=== PATIENT | female | born 1995 | race Caucasian/White ===

== ENCOUNTER 2021-01-19 16:51 | Emergency (ER) | payer OTHER, BC ==
[2021-01-19] MEDS ORDERED: Boostrix 0.5 ML (Tdap) VIAL ONE (16:56)
== END 2021-01-19 17:50 | disposition home or self-care (01) ==
LOC: BURERS 16:51
DX: S16.1XXA Strain of muscle, fascia and tendon at neck level, initial encounter (principal); S50.12XA Contusion of left forearm, initial encounter; S90.02XA Contusion of left ankle, initial encounter; S90.01XA Contusion of right ankle, initial encounter; Z23 Encounter for immunization; V89.2XXA Person injured in unspecified motor-vehicle accident, traffic, initial encounter
CPT/HCPCS: 90471; 90715